=== PATIENT | male | born 1965 | race American Indian/Alaskan Native ===

== ENCOUNTER 2016-06-10 13:44 | Emergency (ER) | payer OTHER ==
--- NOTE | 2016-06-10 14:59 | Emergency Department Report ---
Chief Complaint: Chest Pain Stated Complaint: PAIN DOWN LEFT SIDE/NECK/ARMS Time Seen by Provider: 06/10/16 14:53 - HPI History of Present Illness: 51-year-old male comes in for complaint of chest pain. Patient reports that the pain starts in his left jaw left side and left shoulder blade been going on for 3 days pain increases with no movement he has a past medical history of hypertension and is on Diavon 250 mg. Denies any nausea vomiting he reports that the chest pain feels like pressure. Not able to lay on that left side. - Exam Vital Signs: Vital Signs 06/10/16 14:14 Temperature 98.2 F Pulse Rate 81 Respiratory 16 Rate Blood Pressure 131/94 O2 Sat by Pulse 97 Oximetry Physical Exam: Alert and oriented 3. Cardiovascular S1-S2 regular rate and rhythm respiratory clear to auscultation bilaterally there is chest wall tenderness that is reproducible. MSE screening note: Focused history and physical exam performed. Due to findings the following was ordered: Chest pain protocols in place. ED Disposition for MSE Condition: Stable
[2016-06-10 15:15] LABS: Basophils % (Auto) 0.4 % (0.0-1.8); Eosinophils % (Auto) 1.8 % (0.0-4.3); Hematocrit 43.3 % (35.5-45.6); Hemoglobin 14.1 gm/dl (11.8-15.2); Mean Corpuscular HGB Conc 33 % (32-34); Mean Corpuscular Hemoglobin 28 pg (28-32); Mean Corpuscular Volume 86 fl (84-94); Platelet Count 250 K/mm3 (140-440); Red Blood Count 5.05 M/mm3 (3.65-5.03); Red Cell Distribution Width 12.9 % (13.2-15.2); White Blood Count 7.7 K/mm3 (4.5-11.0)
[2016-06-10 15:39] LABS: Creatine Kinase MB 2.6 ng/mL (0.0-4.0)
[2016-06-10 15:40] LABS: Anion Gap 19 mmol/L; BUN/Creatinine Ratio 13.33; Blood Urea Nitrogen 12 mg/dL (9-20); Calcium 8.7 mg/dL (8.4-10.2); Carbon Dioxide 25 mmol/L (22-30); Chloride 100.8 mmol/L (98-107); Creatine Kinase 276 units/L (55-170); Glucose 118 mg/dL (75-100); Potassium 3.6 mmol/L (3.6-5.0); Sodium 141 mmol/L (137-145)
[2016-06-10] MEDS ORDERED: TORADOL IM ONE (23:45)
--- NOTE | 2016-06-10 23:47 | Emergency Department Report ---
ED General Adult HPI - General Chief complaint: Chest Pain Stated complaint: PAIN DOWN LEFT SIDE/NECK/ARMS Time Seen by Provider: 06/10/16 14:53 Source: patient, family, RN notes reviewed Mode of arrival: Ambulatory Limitations: No Limitations - History of Present Illness Initial comments: This is a 51-year-old male, previously unknown to me. His primary care doctor is Dr. Dieter Sun. He reports a past medical history of diabetes and hypertension. 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 He denies cocaine use. Patient presents to the ER complaining of left-sided neck pain which radiates down the left upper extremity. It also radiates to the left anterior chest. There is no pain from the chest that radiates to the back, arms or neck. There is no vomiting or diaphoresis. There is no shortness of breath. Pain increases with palpation, decreases with rest. There is no leg pain. There is no leg swelling. No recent trips greater than 4 hours. No recent hospital admissions. Symptoms have been going on for 3 days. -: Gradual Location: neck, left, upper extremity Quality: aching Consistency: constant Improves with: rest Worsens with: movement Associated Symptoms: denies: confusion, cough, diaphoresis, fever/chills, headaches, loss of appetite, malaise, nausea/vomiting, rash, seizure, shortness of breath, syncope, weakness - Related Data Home Medications Medication Instructions Recorded Confirmed Last Taken Loratadine [Claritin] 10 mg PO DAILY 06/11/16 06/11/16 Unknown Valsartan [Diovan] 12.5 mg PO DAILY 06/11/16 06/11/16 06/11/16 metFORMIN [Glucophage] 500 mg PO BID 06/11/16 06/11/16 Unknown Previous Rx's Medication Instructions Recorded Last Taken Type Ketorolac [Toradol] 10 mg PO Q6H PRN #20 tablet 06/11/16 Unknown Rx Allergies Allergy/AdvReac Type Severity Reaction Status Date / Time No Known Allergies Allergy Unverified 06/10/16 14:14 ED Review of Systems ROS: Stated complaint: PAIN DOWN LEFT SIDE/NECK/ARMS Other details as noted in HPI Constitutional: denies: chills, diaphoresis, fever Eyes: denies: vision change ENT: denies: epistaxis Respiratory: denies: cough, shortness of breath, SOB with exertion, SOB at rest Cardiovascular: denies: dyspnea on exertion Gastrointestinal: denies: abdominal pain, nausea, diarrhea Genitourinary: denies: urgency, dysuria Musculoskeletal: myalgia Skin: denies: rash Neurological: paresthesias. denies: headache, weakness ED Past Medical Hx - Medications Home Medications: Home Medications Medication Instructions Recorded Confirmed Last Taken Type Ketorolac [Toradol] 10 mg PO Q6H PRN #20 tablet 06/11/16 Unknown Rx Loratadine [Claritin] 10 mg PO DAILY 06/11/16 06/11/16 Unknown History Valsartan [Diovan] 12.5 mg PO DAILY 06/11/16 06/11/16 06/11/16 History metFORMIN [Glucophage] 500 mg PO BID 06/11/16 06/11/16 Unknown History ED Physical Exam - General Limitations: No Limitations General appearance: alert, in no apparent distress - Head Head exam: Present: atraumatic, normocephalic - Eye Eye exam: Present: normal appearance, PERRL, EOMI. Absent: nystagmus - ENT ENT exam: Present: normal exam, normal orophraynx, mucous membranes moist, normal external ear exam - Neck Neck exam: Present: normal inspection, tenderness (there is reproducible left- sided paracervical and trapezius tenderness, and there is anterior superior chest wall tenderness.) - Respiratory Respiratory exam: Present: normal lung sounds bilaterally, chest wall tenderness. Absent: respiratory distress, wheezes, rales, rhonchi, stridor - Cardiovascular Cardiovascular Exam: Present: regular rate, normal rhythm, normal heart sounds. Absent: bradycardia, tachycardia, irregular rhythm, systolic murmur, diastolic murmur, rubs, gallop - GI/Abdominal GI/Abdominal exam: Present: soft, normal bowel sounds. Absent: distended, tenderness, guarding, rebound, rigid, pulsatile mass - Rectal Rectal exam: Present: deferred - Extremities Exam Extremities exam: Present: normal inspection, full ROM, normal capillary refill. Absent: tenderness, pedal edema, joint swelling, calf tenderness - Back Exam Back exam: Present: normal inspection, full ROM. Absent: tenderness, CVA tenderness (R), CVA tenderness (L), muscle spasm, paraspinal tenderness, vertebral tenderness - Neurological Exam Neurological exam: Present: alert, oriented X3, normal gait, other (Extraocular movements intact. Tongue midline. No facial droop. Facial sensation intact to light touch in the V1, V2, V3 distribution bilaterally. 5 and 5 strength in 4 extremities.. Sensation is intact to light touch in 4 extremities.). Absent : motor sensory deficit - Psychiatric Psychiatric exam: Present: normal affect, normal mood - Skin Skin exam: Present: warm, dry, intact, normal color. Absent: rash ED Course Vital Signs 06/10/16 06/11/16 06/11/16 14:14 00:10 00:11 Temperature 98.2 F 98.0 F Pulse Rate 81 79 Respiratory 16 17 17 Rate Blood Pressure 131/94 Blood Pressure 120/82 [Left] O2 Sat by Pulse 97 97 Oximetry 06/11/16 00:12 Temperature Pulse Rate Respiratory 17 Rate Blood Pressure Blood Pressure [Left] O2 Sat by Pulse Oximetry - Reevaluation(s) Reevaluation #1: 06/11/16 00:22 Differential diagnosis: Radiculopathy, muscular pain, chest wall pain Assessment and plan: 51-year-old male with neck pain that radiates down the left upper extremity into the anterior chest wall. He reports that he has unlimited exercise tolerance, and reports while walking over 2 miles yesterday. He has no nausea, vomiting or diaphoresis, and there is no shortness of breath. He has 5/5 strength in 4 extremities and sensation intact to light touch and pinprick. He has no pulmonary embolus or DVT risk factors and he is low risk by well's criteria. He is low risk by SHARAN score, he is low risk by heart score. I think it is unlikely that the patient is in the acute coronary syndrome spectrum. EKGs were morphologically unchanged 2, troponins were negative 2. He felt improved after pain medication. He is instructed to follow-up with his outpatient primary care doctor and cardiology. Patient is reliable, understands that he is at low risk for major adverse cardiac event, and will follow-up. ED Medical Decision Making - Lab Data Result diagrams: 06/10/16 15:03 06/10/16 15:03 Vital Signs 06/10/16 06/11/16 06/11/16 14:14 00:10 00:11 Temperature 98.2 F 98.0 F Pulse Rate 81 79 Respiratory 16 17 17 Rate Blood Pressure 131/94 Blood Pressure 120/82 [Left] O2 Sat by Pulse 97 97 Oximetry 06/11/16 00:12 Temperature Pulse Rate Respiratory 17 Rate Blood Pressure Blood Pressure [Left] O2 Sat by Pulse Oximetry Lab Results 06/10/16 06/10/16 06/10/16 Range/Units 15:03 15:03 23:25 WBC 7.7 (4.5-11.0) K/mm3 RBC 5.05 H (3.65-5.03) M/mm3 Hgb 14.1 (11.8-15.2) gm/dl Hct 43.3 (35.5-45.6) % MCV 86 (84-94) fl MCH 28 (28-32) pg MCHC 33 (32-34) % RDW 12.9 L (13.2-15.2) % Plt Count 250 (140-440) K/mm3 Lymph % (Auto) 24.3 (13.4-35.0) % [place] % (Auto) 6.4 (0.0-7.3) % Eos % (Auto) 1.8 (0.0-4.3) % Baso % (Auto) 0.4 (0.0-1.8) % Lymph # 1.9 (1.2-5.4) K/mm3 [place] # 0.5 (0.0-0.8) K/mm3 Eos # 0.1 (0.0-0.4) K/mm3 Baso # 0.0 (0.0-0.1) K/mm3 Seg Neutrophils % 67.1 (40.0-70.0) % Seg Neutrophils # 5.2 (1.8-7.7) K/mm3 Sodium 141 (137-145) mmol/L Potassium 3.6 (3.6-5.0) mmol/L Chloride 100.8 (98-107) mmol/L Carbon Dioxide 25 (22-30) mmol/L Anion Gap 19 mmol/L BUN 12 (9-20) mg/dL Creatinine 0.9 (0.8-1.5) mg/dL Estimated GFR > 60 ml/min BUN/Creatinine Ratio 13.33 % Glucose 118 H (75-100) mg/dL Calcium 8.7 (8.4-10.2) mg/dL Total Creatine Kinase 276 H (55-170) units/L CK-MB (CK-2) 2.6 (0.0-4.0) ng/mL CK-MB (CK-2) Rel Index 0.9 (0-4) Troponin T < 0.010 < 0.010 (0.00-0.029) ng/mL - EKG Data 06/11/16 00:24 EKG #1: Normal sinus, 81 bpm, normal axis, normal intervals. Not morphologically consistent with STEMI. No prior EKG available for comparison. EKG #2 demonstrates normal sinus, 69 bpm, atrial enlargement, not morphologically consistent with STEMI, appears unchanged when compared to prior EKG. 06/11/16 00:50 - Radiology Data Radiology results: image reviewed Critical care attestation.: If time is entered above; I have spent that time in minutes in the direct care of this critically ill patient, excluding procedure time. ED Disposition Clinical Impression: Neck pain Disposition: DISCHARGED TO HOME OR SELFCARE Is pt being admited?: No Does the pt Need Aspirin: No Condition: Stable Instructions: Cervical Radiculopathy (ED) Additional Instructions: Take the medication as directed. Rest and avoid heavy lifting. Avoid strenuous physical activity. Follow-up with any of illicit manager multicultural within the next 2-3 days. Return to the ER right away with new pain, worsening pain, migration of pain, severe shortness of breath, nausea or vomiting, extremity weakness, inability to tolerate liquid feeds. Prescriptions: Ketorolac [Toradol] 10 mg PO Q6H PRN #20 tablet PRN Reason: Pain Referrals: PRIMARY CAREMD [Primary Care Provider] - 3-5 Days MARII CATALAN MD [Staff Physician] - 3-5 Days SHABNAM COLEMAN MD [Staff Physician] - 3-5 Days
[2016-06-11 00:13] VITALS: BP 120/82
--- NOTE | 2016-06-11 07:34 | XRay Report ---
AP CHEST: HISTORY: chest pain AP view of the chest demonstrates a normal mediastinal and cardiac contour with clear lungs and normal bony and soft tissue structures. IMPRESSION: Unremarkable AP chest.
== END 2016-06-11 01:31 | disposition home or self-care (01) ==
LOC: ED 13:44
DX: M54.2 Cervicalgia (principal)
CPT/HCPCS: 36415; 71010; 80048; 82550; 82553; 82962; 84484; 85025; 93005; 93010; 96372; 99284; J1885

== ENCOUNTER 2017-05-07 21:04 | Emergency (ER) | payer OTHER ==
[2017-05-07 22:01] VITALS: BP 123/90
== END 2017-05-08 00:25 | disposition left against medical advice (07) ==
LOC: ED 21:04
DX: M54.9 Dorsalgia, unspecified (principal); Z53.21 Procedure and treatment not carried out due to patient leaving prior to being seen by health care provider

== ENCOUNTER 2017-05-11 10:26 | Emergency (ER) | payer OTHER ==
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
[2017-05-11 14:49] LABS: Mean Corpuscular HGB Conc 33 % (32-34); Mean Corpuscular Hemoglobin 29 pg (28-32); Mean Corpuscular Volume 87 fl (84-94); Platelet Count 260 K/mm3 (140-440); Red Blood Count 5.18 M/mm3 (3.65-5.03); Red Cell Distribution Width 13.1 % (13.2-15.2); White Blood Count 9.5 K/mm3 (4.5-11.0)
[2017-05-11 14:59] LABS: Anion Gap 13 mmol/L; BUN/Creatinine Ratio 14; Blood Urea Nitrogen 11 mg/dL (9-20); Calcium 9.2 mg/dL (8.4-10.2); Carbon Dioxide 29 mmol/L (22-30); Chloride 102.3 mmol/L (98-107); Glucose 101 mg/dL (75-100); Potassium 3.9 mmol/L (3.6-5.0); Sodium 140 mmol/L (137-145)
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
[2017-05-11 16:55] VITALS: BP 120/80
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
== END 2017-05-11 18:16 | disposition home or self-care (01) ==
LOC: ED 10:26
DX: S39.012A Strain of muscle, fascia and tendon of lower back, initial encounter (principal); R10.9 Unspecified abdominal pain; I10 Essential (primary) hypertension; E11.9 Type 2 diabetes mellitus without complications; V49.49XA Driver injured in collision with other motor vehicles in traffic accident, initial encounter; Y93.89 Activity, other specified; Y92.89 Other specified places as the place of occurrence of the external cause; Y99.8 Other external cause status
CPT/HCPCS: 36415; 72100; 74177; 80048; 85027; 99284; Q9967